=== PATIENT | male | born 1980 | race Caucasian/White ===

== ENCOUNTER 2019-05-06 14:40 | Emergency (ER) | payer MEDICARE ==
[~2019-05-06] VITALS: Ht 175.3 cm; Wt 99.8 kg
[2019-05-06] MEDS ORDERED: CLONIDINE HCL0.2 M2 PO (14:51)
[2019-05-06] MEDS ORDERED: PROGRAF5 MG PO (14:51)
[2019-05-06] MEDS ORDERED: MYFORTIC360 MG PO (14:51)
[2019-05-06] MEDS ORDERED: PREDNISONE 10 M10 M1 PO (14:51)
[2019-05-06] MEDS ORDERED: OMEPRAZOLE 20 M20 M1 PO (14:52)
[2019-05-06 16:01] LABS: ABSOLUTE BASOPHILS 0.1 thou/uL (0.0-0.2); ABSOLUTE EOSINOPHILS 0.1 thou/uL (0.0-0.7); ABSOLUTE LYMPHOCYTES 0.5 thou/uL (0.8-5.3); ABSOLUTE MONOCYTES 0.4 thou/uL (0.0-1.2); ABSOLUTE NEUTROPHILS 4.3 thou/uL (1.6-8.1); BASOPHILS 2.1 %; EOSINOPHILS 1.1 %; HEMATOCRIT 38.3 % (42.0-52.0); HEMOGLOBIN 13.4 gm/dL (14.0-18.0); LYMPHOCYTES 10.2 %; MCHC 34.8 g/dL (28.0-37.0); MCV 97.5 fL (80.0-100.0); MONOCYTES 6.6 %; NUCLEATED RBCS 0 /100WBC; PLATELET COUNT* 145 thou/uL (150-400); RBC 3.93 mil/uL (4.50-6.00); RDW-CV 13.8 % (10.5-14.5); WBC 5.3 thou/uL (4.0-11.0)
[2019-05-06 16:27] LABS: CALCIUM 8.5 mg/dL (8.5-10.1); CREATININE 1.5 mg/dL (0.6-1.3); POTASSIUM 4.2 mmol/L (3.5-5.1)
[2019-05-06 16:32] LABS: ALBUMIN 3.4 g/dL (3.4-5.0); TOTAL BILIRUBIN 0.6 mg/dL (<0.1-1.0); TOTAL PROTEIN 6.6 g/dL (6.4-8.2)
[2019-05-06 16:43] VITALS: BP 176/76
== END 2019-05-06 16:44 | disposition home or self-care (01) ==
LOC: M.ERS 14:40
PROVIDERS: Family Medicine
DX: R10.32 Left lower quadrant pain (principal); I10 Essential (primary) hypertension; F17.210 Nicotine dependence, cigarettes, uncomplicated; Z88.5 Allergy status to narcotic agent; Z88.8 Allergy status to other drugs, medicaments and biological substances